=== PATIENT | male | born 1945 | race Caucasian/White ===

== ENCOUNTER 2019-12-09 13:20 | Outpatient (CLI) | payer MEDICARE, BC, SELFPAY ==
--- NOTE | 2019-12-09 14:30 | NEURO_ITS ---
Patient Number: [id number] Impression: # Complains of numbness of feet. 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 # Sensory nerve response on the right is of low amplitude. # Clinical correlation recommended. # Needle/EMG exam not requested. Nerve Conduction Studies Anti Sensory Summary Table Stim Site NR Peak (ms) P-T Amp (?V) Site1 Site2 Delta-P (ms) Dist (cm) Ry (m/s) Left Sup Fibular Anti Sensory (Ant Lat Mall) 14 cm 4.0 15.8 14 cm Ant Lat Mall 4.0 16.0 40 Right Sup Fibular Anti Sensory (Ant Lat Mall) 14 cm 3.9 26.9 14 cm Ant Lat Mall 3.9 16.0 41 Left Sural Anti Sensory (Lat Mall) Calf 3.4 6.2 Calf Lat Mall 3.4 16.0 47 Right Sural Anti Sensory (Lat Mall) Calf 3.6 1.0 Calf Lat Mall 3.6 16.0 44 Motor Summary Table Stim Site NR Onset (ms) O-P Amp (mV) Site1 Site2 Delta-0 (ms) Dist (cm) Ry (m/s) Left Peroneal Motor (Vastus Med) Ankle 5.6 2.2 Popit Ankle 8.8 39.0 44 Popit 14.4 1.5 Right Peroneal Motor (Vastus Med) Ankle 5.2 2.0 Popit Ankle 9.3 40.0 43 Popit 14.5 1.5 Left Tibial Motor (Abd Rivera Brev) Ankle 5.2 0.5 Knee Ankle 8.6 44.0 51 Knee 13.8 0.2 Right Tibial Motor (Abd Rivera Brev) Ankle 5.1 3.1 Knee Ankle 10.8 44.0 41 Knee 15.9 1.8 F Wave Studies NR F-Lat (ms) L-R F-Lat (ms) Left Peroneal (Mrkrs) (EDB) 63.48 0.12 Right Peroneal (Mrkrs) (EDB) 63.59 0.12 Left Tibial (Mrkrs) (Abd Hallucis) DISPERSED RESPONSE NR Right Tibial (Mrkrs) (Abd Hallucis) 63.14 MTDD
== END 2019-12-09 13:21 | disposition home or self-care (01) ==
LOC: ANHLAB 13:24 → ANHCARD 13:37
PROVIDERS: PCP Internal Medicine; Visit Provider Internal Medicine
DX: M24.175 Other articular cartilage disorders, left foot (principal); G62.9 Polyneuropathy, unspecified
CPT/HCPCS: 95910

== ENCOUNTER 2024-03-17 13:02 | Outpatient (CLI) | payer MEDICARE, BC, SELFPAY ==
--- NOTE | ~2024-03-17 | MR_ITS ---
EXAMINATION: MR lumbar spine wo con DATE: 03/17/2024 13:52 INDICATION: Lumbar radiculopathy. TECHNIQUE: Magnetic resonance imaging (MRI) of the lumbar spine was performed without intravenous con trast. Sequences included sagittal T2-weighted FSE, sagittal T2-weighted FS FSE, sagittal T1-weighted FSE, and axial T2-weighted FSE. COMPARISON: None FINDINGS: 2 mm retrolisthesis T12 on L1, L1 on L2 and L2 on L3, 3 mm retrolisthesis L4 on L5. 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 Mild likely p hysiologic anterior wedging at T12 and L1. Remaining vertebral body heights are normal. No acute frac ture. T11 and L1 T1 and T2 hyperintense hemangiomas. Mild fibrofatty degenerative endplate changes al shanelle the right inferior endplate of L2 and along the anterosuperior margins of the L2 and L3 vertebral bodies. Moderate disc height loss at T11-T12 and L5-S1. Disc desiccation and mild disc height loss a t the remaining intervening levels. The conus medullaris terminates at L2. There is normal signal in the caudal spinal cord. There abrupt transition from normal appearing dispersed nerve roots in the ca uda equina cephalad to the level of the midpoint of L3-1 peripheral Mediport appearance of thickened nerve roots caudal to the level of the midpoint of L3 suggesting sequela of arachnoiditis. A few T2 h yperintense right renal cysts the largest measuring 2.0 cm. There is a small amount of fluid extendin g between the bilateral L5 pars interarticularis defects across the L4-5 interspinous process space. Paravertebral soft tissues are otherwise unremarkable. The following disc levels are specifically dis cussed: T12-L1: Disc is bulging with annular fissure. There is mild left and mild to moderate right facet macy nt osteoarthritis. There is moderate bilateral neural foraminal stenosis. There is mild central canal stenosis. L1-L2: Disc is bulging. There is mild bilateral facet joint osteoarthritis. There is moderate right a nd mild to moderate left neural foraminal stenosis. There is mild central canal stenosis. L2-L3: Disc is bulging. There is mild left and moderate right facet joint osteoarthritis. There is mo derate bilateral neural foraminal stenosis. There is mild central canal stenosis. L3-L4: Small bilateral disc protrusions. There is hypertrophy of the ligamentum flavum. There is mod erate bilateral facet joint osteoarthritis. There is moderate bilateral, left greater than right neur al foraminal stenosis. There is moderate central canal stenosis. L4-L5: Disc is bulging. There is hypertrophy of the ligamentum flavum. There is moderate bilateral fa cet joint osteoarthritis. There is moderate right and severe left neural foraminal stenosis. There is moderate central canal stenosis. L5-S1: Annular fissure with broad-based disc extrusion extending from foraminal zone to foraminal zon e with disc material extending approximately 5 mm cephalad to the level of the inferior endplate of L 5. There is moderate left and moderate to severe right facet joint osteoarthritis. There is severe bi lateral neural foraminal stenosis. There is mild to moderate central canal stenosis. IMPRESSION: 1. 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 2. Moderate lower lumbar spine predominant spondylosis. 3. 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 Reviewed, dictated and finalized at location B. [facility] IMPRESSION: 1. 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 2. Moderate lower lumbar spine predominant spondylosis. 3. Lumbar adhesive arachnoiditis with thickened peripherally matted appearing n erve roots beginning at extending below the level of L3.
== END 2024-03-17 13:03 | disposition home or self-care (01) ==
PROVIDERS: PCP Physician Assistant Medical; Visit Provider Physician Assistant Medical
DX: M43.06 Spondylolysis, lumbar region (principal); G03.9 Meningitis, unspecified
CPT/HCPCS: 72148